=== PATIENT | female | born 1965 | race Caucasian/White ===

== ENCOUNTER 2018-12-21 15:20 | Emergency (ER) | payer OTHER ==
[2018-12-21] MEDS: KETOROLAC 30 MG INJ IM (17:18)
[2018-12-22] MEDS ORDERED: morphine 2 MG INJ (12:53)
== END 2018-12-21 17:41 | disposition home or self-care (01) ==
LOC: FTE 15:20
DX: M54.41 Lumbago with sciatica, right side (principal); F17.210 Nicotine dependence, cigarettes, uncomplicated
CPT/HCPCS: 81025; 96372; 99284-25